=== PATIENT | female | born 1950 | race Caucasian/White ===

== ENCOUNTER → 2017-07-14 | Outpatient (CLI) | payer MEDICARE, OTHER ==
[~2017-07-14] MED LIST: ADVIL200 MG PO; ALEVE 220MG220 MG PO; ALEVE PM PO; CEPHALEXIN500 M1 PO; CHANTIX START M1 TAB PO; CHANTIX1 TAB PO; FOLIC ACID 11 MG/TA1 PO; IRON324 M1 PO; LISINOPRIL/HCTZ1 TA1 PO; MULTIPLE VITAMI1 CAP PO; NORCO 325 MG-51 TAB PO; PHENERGAN 25 TA25 MG PO; VITAMIN C500 MG PO; ZESTRIL 5MG5 MG PO
[2017-07-14 08:23] LABS: COLLECTION METHOD CLEAN CATCH
[2017-07-14 08:49] LABS: MUCOUS Present /lpf; PH 5 (5-8); URINE APPEARANCE Clear; URINE BACTERIA Rare /hpf; URINE BILIRUBIN Negative (NEGATIVE); URINE BLOOD 1+ (NEGATIVE); URINE COLOR Yellow; URINE GLUCOSE Negative (NEGATIVE); URINE KETONE Negative (NEGATIVE); URINE LEUKOCYTE ESTERASE 1+ (NEGATIVE); URINE NITRATE Negative (NEGATIVE); URINE PROTEIN(semi-quant) Negative (NEGATIVE); URINE UROBILINOGEN Negative (NEGATIVE)
== END ==
LOC: COL.LAB 08:06
PROVIDERS: Orthopaedic Surgery
DX: Z01.812 Encounter for preprocedural laboratory examination (principal)

== ENCOUNTER → 2017-07-29 | Outpatient (CLI) | payer MEDICARE, OTHER | LOC: COL.LAB 11:24 | DX: Z01.812 Encounter for preprocedural laboratory examination (principal); M25.512 Pain in left shoulder ==